=== PATIENT | female | born 1995 | race Caucasian/White ===

== ENCOUNTER 2021-11-28 17:04 | Emergency (ER) | payer BC, SELFPAY ==
--- NOTE | ~2021-11-28 | XR_ITS ---
EXAM: XR ankle LT min 3V HISTORY: PAIN lat Lt ankle; twisted ankle 3 wks ago COMPARISON: None available FINDINGS: Normal mineralization. No fracture or dislocation. No lytic or blastic lesion. Joint space s maintained. No erosion or periosteal change. Soft tissues within normal limits. IMPRESSION: No acute osseous finding in the left ankle. Reviewed, dictated and finalized at location K.
[2021-11-28 17:14] VITALS: BP 137/73; PULSE 143; RESP 16; TEMP 37; O2SAT 100
--- NOTE | 2021-11-28 17:17 | ED.LOWEXIN ---
HPI - Extremity Injury (Lower) General Chief Complaint: Extremity Injury, Lower Stated Complaint: lt ankle inj Time Seen by Provider: 11/28/21 17:17 Source: patient and RN notes reviewed Mode of arrival: ambulatory Limitations: no limitations History of Present Illness HPI Narrative: 26 y/o female presented for c/o left ankle pain after injury 3 weeks ago. States she fell down some stairs while moving. She has not had it evaluated since the injury. Limping upon arrival. Related Data Home Medications Medication Instructions Recorded Confirmed No Home Medications 11/28/21 11/28/21 Allergies Allergy/AdvReac Type Severity Reaction Status Date / Time No Known Allergies Allergy Verified 11/28/21 17:17 Review of Systems Review of Systems: CONSTITUTIONAL: Denies body aches, fever, chills EYES: Denies visual changes ENT: Denies rhinorrhea, congestion CARDIOVASCULAR: Denies chest pain, palpitations, or edema. RESPIRATORY: Denies cough or dyspnea. GASTROINTESTINAL: Endorses abdominal pain, nausea, vomiting, diarrhea. GENITOURINARY: Denies dysuria, hematuria, or CVA tenderness. SKIN: Denies rash, itching, or wounds. MUSCULOSKELETAL:Reports ankle pain. NEUROLOGIC: Denies headache, numbness, tingling, or weakness. PSYCH: Denies mood change All systems reviewed & are unremarkable except as noted in HPI and below PMFSH Comments At time of signature, I have reviewed and agree with nursing past medical, surgical, social and family history unless otherwise noted. Please see nursing chart for further information. There is no relevant family history pertinent to the presenting complaint Exam Narrative: GENERAL: Well-appearing HEAD: Normocephalic, atraumatic. EYES: EOMI. Conjunctivae normal. ENT: Mucous membranes pink and moist. NECK: Normal AROM. Supple. CHEST: No respiratory distress. Clear to auscultation. HEART: tachycardic, regular rhythm. No murmur appreciated. Normal peripheral pulses. ABDOMEN: abd soft, nondistended, normal active bowel sounds. MUSCULOSKELETAL: No bony tenderness. EXTREMITIES:Limited ROM to left ankle, unable to plantar flex. no swelling, bruising, or redness. Mild TTP left lateral malleolus. SKIN: Warm, dry, no rash. Capillary refill normal. Normal skin turgor. NEURO: No focal deficits. Alert and oriented x3. Gait with limp. PSYCH: Normal affect. Course Course Emergency Course: Patient is aware of diagnosis, understands and agrees to treatment plan. Anticipatory guidance given. Patient agrees to follow-up as directed and is aware of reasons to seek care at the emergency department. Portions of this record may have been created with voice recognition software Level of Care: Express Care Visit Vital Signs Vital signs: Vital Signs Temperature 98.6 F 11/28/21 17:14 Pulse Rate 143 H 11/28/21 17:14 Respiratory Rate 16 11/28/21 17:14 Blood Pressure 137/73 11/28/21 17:14 Pulse Oximetry 100 11/28/21 17:14 Temperature 98.6 F 11/28/21 17:18 Pulse Rate 143 H 11/28/21 17:18 Respiratory Rate 16 11/28/21 17:18 Blood Pressure 137/73 11/28/21 17:18 Pulse Oximetry 100 11/28/21 17:18 MDM - Extremity Injury (Lower) MDM Narrative Medical decision making narrative: xray reviewed with pt, no fracture. On PE the left foot is unable to plantar flex, she is advised to avoid the immobilizer and f/u with PCP/PT. v/u. Differential Diagnosis Differential diagnosis: Likely ankle sprain and strain and ankle fracture Imaging Data Radiologist's impression: Ordering Physician: Monika Moreno APRN Date of Service: 11/28/21 Procedure(s): XR ankle LT min 3V Accession Number(s): [id number] cc: Monika Moreno APRN; CARE ASST PHYSICIAN~ EXAM: XR ankle LT min 3V HISTORY: PAIN lat Lt ankle; twisted ankle 3 wks ago COMPARISON: None available FINDINGS: Normal mineralization. No fracture or dislocation. No lytic or blastic lesion. Joint spaces maintained. No e
[2021-11-28 17:18] VITALS: BP 137/73; PULSE 143; RESP 16; TEMP 37; O2SAT 100
[2021-11-28 17:45] VITALS: PULSE 84
== END 2021-11-28 17:45 | disposition home or self-care (01) ==
PROVIDERS: Emergency Provider Nurse Practitioner Family
DX: S93.402A Sprain of unspecified ligament of left ankle, initial encounter (principal); W10.9XXA Fall (on) (from) unspecified stairs and steps, initial encounter
CPT/HCPCS: 73610; 99213; G0463